=== PATIENT | female | born 1950 | race Caucasian/White ===

== ENCOUNTER → 2021-10-15 | Outpatient (CLI) | payer MEDICARE, OTHER ==
--- NOTE | 2021-10-15 14:16 | Diagnostic Imaging Report ---
Indication: Fall and right shoulder pain. Time of Exam: 1:15 PM No prior studies are available for comparison. There appears to be a healing fracture of the right humeral neck. There is moderate amount of sclerosis present at the fracture site. Alignment is near-anatomic. There is some impaction at the fracture site. Glenohumeral and acromio clavicular alignment are normal. There is no dislocation. IMPRESSION: There is a healing fracture of the surgical neck of the right humerus. Alignment is anatomic. Dictated by: Dictated on workstation # [id number]
== END ==
LOC: ORTHO 12:40
PROVIDERS: ATTEND Orthopaedic Surgery
DX: S42.211D Unspecified displaced fracture of surgical neck of right humerus, subsequent encounter for fracture with routine healing (principal); W19.XXXD Unspecified fall, subsequent encounter
CPT/HCPCS: 73030; G0463; 99202

== ENCOUNTER → 2021-11-14 | Outpatient (CLI) | payer MEDICARE, OTHER ==
--- NOTE | 2021-11-14 13:22 | Diagnostic Imaging Report ---
INDICATION: Shoulder pain. COMPARISON: 10/15/2021 FINDINGS: 2 radiographic views of the right shoulder were obtained and again demonstrate bandlike area of sclerosis involving the surgical neck of the proximal humerus consistent with healing fracture. Overall, appearance is stable compared to prior exam. No new acute fracture or dislocation is seen. There is narrowing of the glenohumeral joint space. Glenohumeral joint space is maintained. Included portions right hemithorax clear. IMPRESSION: 1. Redemonstration healing fracture of the proximal right humerus. 2. Narrowing of the acromiohumeral joint space. This can be seen with chronic rotator cuff tear. Dictated by: Dictated on workstation # [id number]
== END ==
LOC: ORTHO 12:27
PROVIDERS: ATTEND Orthopaedic Surgery
DX: S42.224D 2-part nondisplaced fracture of surgical neck of right humerus, subsequent encounter for fracture with routine healing (principal); X58.XXXD Exposure to other specified factors, subsequent encounter
CPT/HCPCS: 73030; G0463; 99213